=== PATIENT | female | born 1990 | race Caucasian/White ===

== ENCOUNTER 2017-04-23 01:17 | Emergency (ER) | payer BC, OTHER ==
--- NOTE | 2017-04-23 01:27 | EDM.PDOC ---
ED HPI GENERAL MEDICAL PROBLEM - General Chief Complaint: Abdominal Pain Stated Complaint: STOMACH/BACK PAIN Time Seen by Provider: 04/23/17 01:22 - History of Present Illness INITIAL COMMENTS - FREE TEXT/NARRATIVE: HISTORY AND PHYSICAL: History of present illness: Patient's 26-year-old white female presents with a concern of mid back pain radiating around to her abdomen she's had similar episodes in the past is slightly worse tonight she states it hurts somewhat taking a deep breath she denies vomiting diarrhea vaginal discharge or irregular bleeding or other concerns she denies trauma states this is somewhat worse with movement Review of systems: As per history of present illness and below otherwise all systems reviewed and negative. Past medical history: As per history of present illness and as reviewed below otherwise noncontributory. Surgical history: As per history of present illness and as reviewed below otherwise noncontributory. Social history: No reported history of drug or alcohol abuse. Family history: As per history of present illness and as reviewed below otherwise noncontributory. Physical exam: HEENT: Atraumatic, normocephalic, pupils reactive, negative for conjunctival pallor or scleral icterus, mucous membranes moist, throat clear, neck supple, nontender, trachea midline. Lungs: Clear to auscultation, breath sounds equal bilaterally, chest nontender. Heart: S1S2, regular, negative for clicks, rubs, or JVD. Abdomen: Soft, nondistended, nontender. Negative for masses or hepatosplenomegaly. Negative for costovertebral tenderness. Pelvis: Stable nontender. Genitourinary: Deferred. Rectal: Deferred. Extremities: Atraumatic, negative for cords or calf pain. Neurovascular unremarkable. Neuro: Awake, alert, oriented. Cranial nerves II through XII unremarkable. Cerebellum unremarkable. Motor and sensory unremarkable throughout. Exam nonfocal. Diagnostics: CBC CMP amylase lipase UA hCG chest x-ray Therapeutics: Toradol 60 mg IM Impression: #1 back pain #2 abdominal pain Definitive disposition and diagnosis as appropriate pending reevaluation and review of above. - Related Data Allergies Allergy/AdvReac Type Severity Reaction Status Date / Time No Known Allergies Allergy Verified 09/22/15 02:21 Home Meds: Home Meds PNV95/Ferrous Fumarate/FA [ Vitamins Tablet] 1 tab PO DAILY 09/22/15 [ History] Past Medical History Respiratory History: Reports: TB LEGAL SPECIALIST History: Reports: - Infectious Disease History Infectious Disease History: Reports: TB - Past Surgical History HEENT Surgical History: Reports: Tonsillectomy Female Surgical History: Reports: LEEP Social & Family History - Family History HEENT: Reports: Hearing Impairment, Impaired Vision Cardiac: Reports: [place] OBGYN: Reports: Endocrine/Metabolic: Reports: Diabetes, type II ED ROS GENERAL - Review of Systems Review Of Systems: ROS reveals no pertinent complaints other than HPI. ED EXAM, GENERAL - Physical Exam Exam: See Below (See dictation) Course - Orders/Labs/Meds Orders: Active Orders 24 hr Category Date Time Status Chest 2V [CR] Stat Exams 04/23/17 01:24 Ordered AMYLASE [CHEM] Stat Lab 04/23/17 01:21 Ordered CBC WITH AUTO DIFF [HEME] Stat Lab 04/23/17 01:21 Ordered COMPREHENSIVE METABOLIC PN,CMP [CHEM] Stat Lab 04/23/17 01:21 Ordered HCG QUALITATIVE,SERUM [CHEM] Stat Lab 04/23/17 01:21 Ordered LIPASE [CHEM] Stat Lab 04/23/17 01:21 Ordered UA W/MICROSCOPIC [URIN] Stat Lab 04/23/17 01:21 Uncollected Departure - Departure Time of Disposition: : Disposition: Home, Self-Care 01 Condition: Good Clinical Impression: Abdominal pain, Back pain - Discharge Information Referrals: PCP,None [Primary Care Provider] - Additional Instructions: The following information is given to patients seen in the emergency department who are being discharged to home. This information is to outline your options for follow-up care. We provide all patients seen in our emergency department with a follow-up referral. The need for follow-up, as well as the timing and circumstances, are variable depending upon the specifics of your emergency department visit. If you don't have a primary care physician on staff, we will provide you with a referral. We always advise you to contact your personal physician following an emergency department visit to inform them of the circumstance of the visit and for follow-up with them and/or the need for any referrals to a consulting specialist. The emergency department will also refer you to a specialist when appropriate. This referral assures that you have the opportunity for followup care with a specialist. All of these measure are taken in an effort to provide you with optimal care, which includes your followup. Under all circumstances we always encourage you to contact your private physician who remains a resource for coordinating your care. When calling for followup care, please make the office aware that this follow-up is from your recent emergency room visit. If for any reason you are refused follow-up, please contact the [facility] emergency department at and asked to speak to the emergency department charge nurse. [facility] [address] [place] [id number] Primary medical doctor 1-2 days return as needed as discussed] - My Orders Last 24 Hours: My Active Orders 04/23/17 01:21 AMYLASE [CHEM] Stat CBC WITH AUTO DIFF [HEME] Stat COMPREHENSIVE METABOLIC PN,CMP [CHEM] Stat HCG QUALITATIVE,SERUM [CHEM] Stat LIPASE [CHEM] Stat UA W/MICROSCOPIC [URIN] Stat 04/23/17 01:24 Chest 2V [CR] Stat - Assessment/Plan Last 24 Hours: My Active Orders 04/23/17 01:21 AMYLASE [CHEM] Stat CBC WITH AUTO DIFF [HEME] Stat COMPREHENSIVE METABOLIC PN,CMP [CHEM] Stat HCG QUALITATIVE,SERUM [CHEM] Stat LIPASE [CHEM] Stat UA W/MICROSCOPIC [URIN] Stat 04/23/17 01:24 Chest 2V [CR] Stat
[2017-04-23] MEDS ORDERED: Ketorolac 60 MG/2 ML SDV IM ONE (01:29)
[2017-04-23 01:57] LABS: CHLORIDE,CL 106 mmol/L (98-110); SODIUM,NA 139 mmol/L (136-146)
[2017-04-23 03:14] VITALS: BP 113/62
--- NOTE | 2017-04-23 20:25 | CR ---
EXAM DATE: 04/23/17 PATIENT'S AGE: 26 Patient: FLAVIO GONZALEZ Facility: [place], [place] Site . Site : 1990 Study: XRay Chest [id number]/22/2017 2:57:16 AM Ordering Physician: Elke Denise Final Report: INDICATION: UPPER BACK PAIN, SOB TECHNIQUE: Chest 2 views. COMPARISON: 07/08/10 FINDINGS: Cardiovascular and mediastinum: Heart size and vasculature are normal in caliber and appearance. Mediastinum is within normal limits. Lungs and pleural spaces: Lungs are clear. No sign of infiltrate or mass. No sign of pleural effusion. No pneumothorax. Bones and soft tissues: No significant findings. IMPRESSION: Unremarkable chest. Dictated by: Torey Feliz MD @ 04/23/2017 03:03:41 (Electronic Signature) Report Signed by Proxy. [facility]AMPUSPaul
== END 2017-04-23 03:12 | disposition home or self-care (01) ==
LOC: MW.ED 01:17
DX: M54.6 Pain in thoracic spine (principal); R10.9 Unspecified abdominal pain
CPT/HCPCS: 36415; 71020; 80053; 81001; 82150; 83690; 84703; 85025; 96372; 99284; J1885; 99281

== ENCOUNTER 2017-11-04 14:57 | Emergency (ER) | payer BC, OTHER ==
[2017-11-04 15:11] VITALS: BP 119/86
[2017-11-04] MEDS ORDERED: Diphtheria,Pertussis(Acell),Tetanus Vaccine 0.5 ML Syringe IM ONE (15:13)
[2017-11-04] MEDS ORDERED: Ondansetron 4 MG Tab.DIS PO ONE (15:13)
--- NOTE | 2017-11-04 15:16 | EDM.PDOC ---
ED HPI GENERAL MEDICAL PROBLEM - General Chief Complaint: Neuro Symptoms/Deficits Stated Complaint: BLACKING OUT Time Seen by Provider: 11/04/17 15:10 - History of Present Illness INITIAL COMMENTS - FREE TEXT/NARRATIVE: HISTORY AND PHYSICAL: History of present illness: Patient's 27 year female presents after having fallen while drinking yesterday she sustained an abrasion contusion her left face she's had some nausea since she denies neck pain chest or abdominal pain or trauma or other concern Review of systems: As per history of present illness and below otherwise all systems reviewed and negative. Past medical history: As per history of present illness and as reviewed below otherwise noncontributory. Surgical history: As per history of present illness and as reviewed below otherwise noncontributory. Social history: No reported history of drug or alcohol abuse. Family history: As per history of present illness and as reviewed below otherwise noncontributory. Physical exam: HEENT: Abrasion noted to the left face some small swelling no bony step-off depression crepitation, normocephalic, pupils reactive, negative for conjunctival pallor or scleral icterus, mucous membranes moist, throat clear, neck supple, nontender, trachea midline. Lungs: Clear to auscultation, breath sounds equal bilaterally, chest nontender. Heart: S1S2, regular, negative for clicks, rubs, or JVD. Abdomen: Soft, nondistended, nontender. Negative for masses or hepatosplenomegaly. Negative for costovertebral tenderness. Pelvis: Stable nontender. Genitourinary: Deferred. Rectal: Deferred. Extremities: Atraumatic, negative for cords or calf pain. Neurovascular unremarkable. Neuro: Awake, alert, oriented. Cranial nerves II through XII unremarkable. Cerebellum unremarkable. Motor and sensory unremarkable throughout. Exam nonfocal. Diagnostics: CT brain Therapeutics: Zofran 4 mg by mouth tetanus update Impression: #1 observation status post fall #2 head injury with abrasion/contusion #3 concussion Definitive disposition and diagnosis as appropriate pending reevaluation and review of above. abdominal pain Pain Score (Numeric/FACES): 6 - Related Data Allergies Allergy/AdvReac Type Severity Reaction Status Date / Time No Known Allergies Allergy Verified 11/04/17 15:05 Home Meds: Home Meds . 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: Psychiatric History: Reports: None - Infectious Disease History Infectious Disease History: Reports: TB - Past Surgical History HEENT Surgical History: Reports: Tonsillectomy Respiratory Surgical History: Reports: None Female Surgical History: Reports: LEEP Social & Family History - Family History Family Medical History: Noncontributory HEENT: Reports: Hearing Impairment, Impaired Vision Cardiac: Reports: [place] OBGYN: Reports: Endocrine/Metabolic: Reports: Diabetes, type II - Tobacco Use Smoking Status *Q: Never Smoker Second Hand Smoke Exposure: No - Caffeine Use Caffeine Use: Reports: None - Recreational Drug Use Recreational Drug Use: No ED ROS GENERAL - Review of Systems Review Of Systems: ROS reveals no pertinent complaints other than HPI. ED EXAM, GENERAL - Physical Exam Exam: See Below (See dictation) Course - Vital Signs Last Recorded V/S: Last Vital Signs Temp 36.8 C 11/04/17 15:06 Pulse 90 11/04/17 15:06 Resp 16 11/04/17 15:06 BP 119/86 11/04/17 15:06 Pulse Ox 97 11/04/17 15:06 Departure - Departure Time of Disposition: 15:15 Disposition: Home, Self-Care 01 Condition: Good Clinical Impression: Concussion, Abrasion - Discharge Information Referrals: PCP,None [Primary Care Provider] - Additional Instructions: The following information is given to patients seen in the emergency department who are being discharged to home. This information is to outline your options for follow-up care. We provide all patients seen in our emergency department with a follow-up referral. The need for follow-up, as well as the timing and circumstances, are variable depending upon the specifics of your emergency department visit. If you don't have a primary care physician on staff, we will provide you with a referral. We always advise you to contact your personal physician following an emergency department visit to inform them of the circumstance of the visit and for follow-up with them and/or the need for any referrals to a consulting specialist. The emergency department will also refer you to a specialist when appropriate. This referral assures that you have the opportunity for followup care with a specialist. All of these measure are taken in an effort to provide you with optimal care, which includes your followup. Under all circumstances we always encourage you to contact your private physician who remains a resource for coordinating your care. When calling for followup care, please make the office aware that this follow-up is from your recent emergency room visit. If for any reason you are refused follow-up, please contact the [facility] emergency department at and asked to speak to the emergency department charge nurse. Push fluids clear liquids as directed Motrin/Tylenol as directed follow-up primary medical doctor call to schedule appointment return as needed as discussed
--- NOTE | 2017-11-06 10:57 | CT ---
EXAM DATE: 11/04/17 PATIENT'S AGE: 27 Patient: FLAVIO GONZALEZ Facility: [place], [place] Site . Site : 1990 Study: CT Head [id number] 3:32:25 PM Ordering Physician: Elke Denise Final Report: INDICATION: Head injury. TECHNIQUE: CT head without IV contrast. FINDINGS: Moderate the prominent amounts of fluid in the maxillary sinuses with associated air bubbles and mucosal thickening. Small amounts of fluid and mucosal thickening in the sphenoid, ethmoidal and frontal sinuses. Findings consistent with sinusitis. Probable mild soft tissue swelling left anterior and lateral frontal scalp anteriorly. No intracranial hemorrhage, edema, or mass effect. Remainder negative. IMPRESSION: 1. Mild to moderate changes of acute sinusitis greatest in the maxillary sinuses. 2. No acute intracranial disease. 3. Probable mild soft tissue swelling focally in the left anterior lateral superior frontal scalp. Please note that all CT scans at this facility use dose modulation, iterative reconstruction, and/or weight-based dosing when appropriate to reduce radiation dose to as low as reasonably achievable. Dictated by Dimitrios Hickman MD @ Nov 04 2017 3:54PM (Electronic Signature) Report Signed by Proxy. STEVEN
== END 2017-11-04 16:50 | disposition home or self-care (01) ==
LOC: MW.ED 14:57
DX: S06.0X9A Concussion with loss of consciousness of unspecified duration, initial encounter (principal); S00.83XA Contusion of other part of head, initial encounter; W19.XXXA Unspecified fall, initial encounter; Z23 Encounter for immunization
CPT/HCPCS: 70450; 90471; 90715; 99284; A9270

== ENCOUNTER 2020-01-11 04:28 | Emergency (ER) | payer OTHER ==
--- NOTE | 2020-01-11 04:30 | EDM.PDOC ---
ED HPI GENERAL MEDICAL PROBLEM - General Chief Complaint: Gastrointestinal Problem Stated Complaint: VOMITING Time Seen by Provider: 01/11/20 04:29 - History of Present Illness INITIAL COMMENTS - FREE TEXT/NARRATIVE: History of present illness: 29-year-old female presenting with sore throat for last 2 days and then around 1 AM this morning was woken up by nausea and started vomiting. She also reports some upper abdominal pain and upper back pain that started after vomiting. She has not had any fevers or chills. She did not really want to come to the emergency room but her mother insisted. LMP just ended several days ago. Review of systems: As per history of present illness and below otherwise all systems reviewed and negative. Past medical history: As per history of present illness and as reviewed below otherwise noncontributory. Surgical history: As per history of present illness and as reviewed below otherwise noncontributory. Social history: No reported history of drug or alcohol abuse. Never smoker Family history: As per history of present illness and as reviewed below otherwise noncontributory. Physical exam: GEN: no acute distress, well appearing HEENT: Atraumatic, normocephalic, mucous membranes moist, no pharyngeal erythema or tonsillar enlargement/exudate Neck: supple, nontender, trachea midline. No lymphadenopathy Lungs: No respiratory distress. Heart: RRR Abdomen: Soft, nondistended, nontender, no rebound or guarding. Back: nontender Extremities: Atraumatic. Neurovascularly intact. Neuro: Awake, alert, oriented. Neuro Exam nonfocal. Skin: warm, dry, no lesions Diagnostics: [] Therapeutics: [] MDM: Impression: [] Plan: [] Definitive disposition and diagnosis as appropriate pending reevaluation and review of above. 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: Psychiatric History: Reports: None - Infectious Disease History Infectious Disease History: Reports: TB - Past Surgical History HEENT Surgical History: Reports: Tonsillectomy Respiratory Surgical History: Reports: None Female Surgical History: Reports: LEEP Social & Family History - Family History Family Medical History: Noncontributory HEENT: Reports: Hearing Impairment, Impaired Vision Cardiac: Reports: [place] OBGYN: Reports: Endocrine/Metabolic: Reports: Diabetes, type II - Caffeine Use Caffeine Use: Reports: None ED ROS GENERAL - Review of Systems Review Of Systems: See Below (See HPI) ED EXAM, GI/ABD - Physical Exam Exam: See Below (See HPI) Course - Vital Signs Text/Narrative:: Nauseated, vomiting, recent sore throat, possible viral illness, possible coronavirus. Will check labs, COVID swab, test and UA. Giving IV fluids, Zofran and Toradol Feeling better after medications. Still has some throat burning and therefore GI cocktail was given which did help. Labs unremarkable, UA negative for infection, test negative, COVID swab negative, no focalized infectious signs or symptoms. No abdominal tenderness on examination. Lipase and bilirubin not elevated. Last Recorded V/S: Last Vital Signs Temp 97.1 F 01/11/20 04:28 Pulse 60 01/11/20 05:45 Resp 14 01/11/20 05:45 BP 124/61 01/11/20 05:45 Pulse Ox 95 01/11/20 05:45 - Orders/Labs/Meds Orders: Active Orders 24 hr Category Date Time Status Sodium Chloride 0.9% [Saline Flush] Med 01/11/20 04:44 Active 10 ml FLUSH ASDIRECTED PRN Sodium Chloride 0.9% [Saline Flush] Med 01/11/20 04:44 Active 2.5 ml FLUSH ASDIRECTED PRN Saline Lock Insert [OM.PC] Stat Oth 01/11/20 04:44 Ordered Medication Orders Sodium Chloride (Saline Flush) 10 ml FLUSH ASDIRECTED PRN PRN Reason: Keep Vein Open Sodium Chloride (Saline Flush) 2.5 ml FLUSH ASDIRECTED PRN PRN Reason: Keep Vein Open Labs: Laboratory Tests 01/11/20 01/11/20 01/11/20 Range/Units 04:45 04:45 04:45 WBC 10.58 (4.0-11.0) K/uL RBC 4.62 (4.30-5.90) M/uL Hgb 13.9 (12.0-16.0) g/dL Hct 40.6 (36.0-46.0) % MCV 87.9 (80.0-98.0) fL MCH 30.1 (27.0-32.0) pg MCHC 34.2 (31.0-37.0) g/dL RDW Std Deviation 39.6 (28.0-62.0) fl RDW Coeff of Devon 12 (11.0-15.0) % Plt Count 249 (150-400) K/uL MPV 9.30 (7.40-12.00) fL Neut % (Auto) 73.2 (48.0-80.0) % Lymph % (Auto) 18.7 (16.0-40.0) % Yell % (Auto) 6.7 (0.0-15.0) % Eos % (Auto) 1.3 (0.0-7.0) % Baso % (Auto) 0.1 (0.0-1.5) % Neut # (Auto) 7.7 H (1.4-5.7) K/uL Lymph # (Auto) 2.0 (0.6-2.4) K/uL Yell # (Auto) 0.7 (0.0-0.8) K/uL Eos # (Auto) 0.1 (0.0-0.7) K/uL Baso # (Auto) 0.0 (0.0-0.1) K/uL Nucleated RBC % 0.0 /100WBC Nucleated RBCs # 0 K/uL Sodium 141 (136-145) mmol/L Potassium 3.8 (3.5-5.1) mmol/L Chloride 104 (98-107) mmol/L Carbon Dioxide 28.0 (21.0-32.0) mmol/L BUN 19 H (7.0-18.0) mg/dL Creatinine 0.8 (0.6-1.0) mg/dL Est Cr Clr Drug Dosing TNP Estimated GFR (MDRD) > 60.0 ml/min Glucose 117 H (74-106) mg/dL Calcium 8.6 (8.5-10.1) mg/dL Total Bilirubin 0.3 (0.2-1.0) mg/dL AST 14 L (15-37) IU/L ALT 46 (14-63) IU/L Alkaline Phosphatase 72 (46-116) U/L Total Protein 7.5 (6.4-8.2) g/dL Albumin 3.6 (3.4-5.0) g/dL Globulin 3.9 (2.6-4.0) g/dL Albumin/Globulin Ratio 0.9 (0.9-1.6) Lipase 92 (73-393) U/L HCG, Qual (NEG) Urine Color YELLOW Urine Appearance SLT CLOUDY Urine pH 5.5 (5.0-8.0) Ur Specific [place] >= 1.030 (1.001-1.035) Urine Protein NEGATIVE (NEGATIVE) mg/dL Urine Glucose (UA) NEGATIVE (NEGATIVE) mg/dL Urine Ketones NEGATIVE (NEGATIVE) mg/dL Urine Occult Blood TRACE-INTACT H (NEGATIVE) Urine Nitrite NEGATIVE (NEGATIVE) Urine Bilirubin NEGATIVE (NEGATIVE) Urine Urobilinogen 0.2 (<2.0) EU/dL Ur Leukocyte Esterase NEGATIVE (NEGATIVE) Urine RBC 0-2 (0-2/HPF) Urine WBC 0-1 (0-5/HPF) Ur Epithelial Cells MODERATE (NONE-FEW) Urine Bacteria RARE (NEGATIVE) Urine Mucus LIGHT (NONE-MOD) COVID-19 (MERRICK) (NEGATIVE) 01/11/20 01/11/20 Range/Units 04:45 05:00 WBC (4.0-11.0) K/uL RBC (4.30-5.90) M/uL Hgb (12.0-16.0) g/dL Hct (36.0-46.0) % MCV (80.0-98.0) fL MCH (27.0-32.0) pg MCHC (31.0-37.0) g/dL RDW Std Deviation (28.0-62.0) fl RDW Coeff of [place] (11.0-15.0) % Plt Count (150-400) K/uL MPV (7.40-12.00) fL Neut % (Auto) (48.0-80.0) % Lymph % (Auto) (16.0-40.0) % Yell % (Auto) (0.0-15.0) % Eos % (Auto) (0.0-7.0) % Baso % (Auto) (0.0-1.5) % Neut # (Auto) (1.4-5.7) K/uL Lymph # (Auto) (0.6-2.4) K/uL Yell # (Auto) (0.0-0.8) K/uL Eos # (Auto) (0.0-0.7) K/uL Baso # (Auto) (0.0-0.1) K/uL Nucleated RBC % /100WBC Nucleated RBCs # K/uL Sodium (136-145) mmol/L Potassium (3.5-5.1) mmol/L Chloride (98-107) mmol/L Carbon Dioxide (21.0-32.0) mmol/L BUN (7.0-18.0) mg/dL Creatinine (0.6-1.0) mg/dL Est Cr Clr Drug Dosing Estimated GFR (MDRD) ml/min Glucose (74-106) mg/dL Calcium (8.5-10.1) mg/dL Total Bilirubin (0.2-1.0) mg/dL AST (15-37) IU/L ALT (14-63) IU/L Alkaline Phosphatase (46-116) U/L Total Protein (6.4-8.2) g/dL Albumin (3.4-5.0) g/dL Globulin (2.6-4.0) g/dL Albumin/Globulin Ratio (0.9-1.6) Lipase (73-393) U/L HCG, Qual NEGATIVE (NEG) Urine Color Urine Appearance Urine pH (5.0-8.0) Ur Specific [place] (1.001-1.035) Urine Protein (NEGATIVE) mg/dL Urine Glucose (UA) (NEGATIVE) mg/dL Urine Ketones (NEGATIVE) mg/dL Urine Occult Blood (NEGATIVE) Urine Nitrite (NEGATIVE) Urine Bilirubin (NEGATIVE) Urine Urobilinogen (<2.0) EU/dL Ur Leukocyte Esterase (NEGATIVE) Urine RBC (0-2/HPF) Urine WBC (0-5/HPF) Ur Epithelial Cells (NONE-FEW) Urine Bacteria (NEGATIVE) Urine Mucus (NONE-MOD) COVID-19 (MERRICK) NEGATIVE (NEGATIVE) Meds: Medications Generic Name Dose Route Start Last Admin Trade Name Freq PRN Reason Stop Dose Admin Sodium Chloride 10 ml 01/11/20 04:44 Saline Flush FLUSH ASDIRECTED PRN Keep Vein Open Sodium Chloride 2.5 ml 01/11/20 04:44 Saline Flush FLUSH ASDIRECTED PRN Keep Vein Open Discontinued Medications Generic Name Dose Route Start Last Admin Trade Name Mellissa PRN Reason Stop Dose Admin Al Hydroxide/Mg Hydroxide 15 0 ml 01/11/20 05:39 01/11/20 05:49 ml/ Lidocaine HCl 5 ml PO 01/11/20 05:40 1 each ONETIME ONE Administration Sodium Chloride 1,000 mls @ 999 mls/hr 01/11/20 04:44 01/11/20 04:46 Normal Saline IV 01/11/20 05:44 999 mls/hr .Bolus ONE Administration Ketorolac Tromethamine 15 mg 01/11/20 04:44 01/11/20 04:54 Toradol IVPUSH 01/11/20 04:45 15 mg ONETIME ONE Administration Ondansetron HCl 4 mg 01/11/20 04:44 01/11/20 04:55 Zofran IVPUSH 01/11/20 04:45 4 mg ONETIME ONE Administration - Re-Assessments/Exams Free Text/Narrative Re-Assessment/Exam: 01/11/20 05:40 Reassessed the patient. She is feeling somewhat better. Her back pain and nausea are now improved. Her only complaint currently is that she still feels some throat burning after vomiting. Will give GI cocktail. Discussed all results with the patient. Suspect she may have a viral illness. 01/11/20 06:15 Patient is now feeling much better after the GI cocktail. She is no longer nauseated nor is she feeling the throat burning feeling. She would like to be discharged. Will prescribe Zofran PRN - eprescribe not available for her pharmacy, script printed Departure - Departure Time of Disposition: 06:15 Disposition: Home, Self-Care 01 Clinical Impression: Vomiting - Discharge Information Prescriptions: Ondansetron [Zofran ODT] 4 mg PO Q6H PRN #20 tab.dis PRN Reason: Nausea/Vomiting Instructions: Nausea and Vomiting, Adult, [id number] Referrals: Deyvi Vitale [Primary Care Provider] - 2 Days Forms: ED Department Discharge Additional Instructions: The following information is given to patients seen in the emergency department who are being discharged to home. This information is to outline your options for follow-up care. We provide all patients seen in our emergency department with a follow-up referral. The need for follow-up, as well as the timing and circumstances, are variable depending upon the specifics of your emergency department visit. If you don't have a primary care physician on staff, we will provide you with a referral. We always advise you to contact your personal physician following an emergency department visit to inform them of the circumstance of the visit and for follow-up with them and/or the need for any referrals to a consulting specialist. The emergency department will also refer you to a specialist when appropriate. This referral assures that you have the opportunity for follow-up care with a specialist. All of these measure are taken in an effort to provide you with optimal care, which includes your follow-up. Under all circumstances we always encourage you to contact your private physician who remains a resource for coordinating your care. When calling for follow-up care, please make the office aware that this follow-up is from your recent emergency room visit. If for any reason you are refused follow-up, please contact the [facility] Emergency Department at and asked to speak to the emergency department charge nurse. Sepsis Event Note (ED) - Focused Exam Vital Signs: Vital Signs Temp Pulse Resp BP Pulse Ox 01/11/20 05:45 60 14 124/61 95 01/11/20 04:28 97.1 F 97 14 128/84 97 - My Orders Last 24 Hours: My Active Orders 01/11/20 04:44 Sodium Chloride 0.9% [Saline Flush] 10 ml FLUSH ASDIRECTED PRN Sodium Chloride 0.9% [Saline Flush] 2.5 ml FLUSH ASDIRECTED PRN Saline Lock Insert [OM.PC] Stat - Assessment/Plan Last 24 Hours: My Active Orders 01/11/20 04:44 Sodium Chloride 0.9% [Saline Flush] 10 ml FLUSH ASDIRECTED PRN Sodium Chloride 0.9% [Saline Flush] 2.5 ml FLUSH ASDIRECTED PRN Saline Lock Insert [OM.PC] Stat
[2020-01-11] MEDS ORDERED: Ondansetron 4 MG/2 ML SDV IVPUSH ONE (04:44)
[2020-01-11] MEDS ORDERED: Sodium Chloride 0.9% 2.5 ML Syringe FLUSH PRN (04:44)
[2020-01-11] MEDS ORDERED: Sodium Chloride 0.9% 10 ML Syringe FLUSH PRN (04:44)
[2020-01-11] MEDS ORDERED: Ketorolac 15 MG/ML SDV IVPUSH ONE (04:44)
[2020-01-11] MEDS ORDERED: Sodium Chloride 0.9% 1,000 ML IV ONE (04:44)
[2020-01-11 05:14] LABS: BLOOD UREA NITROGEN,BUN 19 mg/dL (7.0-18.0); CHLORIDE,CL 104 mmol/L (98-107); GLUCOSE RANDOM 117 mg/dL (74-106); LIPASE 92 U/L (73-393); POTASSIUM,K 3.8 mmol/L (3.5-5.1); SODIUM,NA 141 mmol/L (136-145)
[2020-01-11] MEDS ORDERED: Alum Hydrox/Mag Hydrox/Simeth 15 ML, Lidocaine 2% 5 ML PO ONE ×2 (05:39)
[2020-01-11 06:50] VITALS: BP 128/83; PULSE 76
== END 2020-01-11 06:45 | disposition home or self-care (01) ==
LOC: MW.ED 04:28
DX: R11.2 Nausea with vomiting, unspecified (principal); Z20.828 Contact with and (suspected) exposure to other viral communicable diseases
CPT/HCPCS: 36415; 80053; 81001; 83690; 84703; 85025; 87635; 96361; 96374; 96375; 99284; A9270; J1885; J2405; J7030; 99283; U0002

== ENCOUNTER 2020-02-21 12:53 | Emergency (ER) | payer OTHER ==
[2020-02-21] MEDS ORDERED: Octyl 2-Cyanoacrylate 1 APPLIC TUBE TOP ONE (13:12)
[2020-02-21] MEDS ORDERED: Octyl 2-Cyanoacrylate 1 APPLIC TUBE ONE (13:13)
--- NOTE | 2020-02-21 13:15 | EDM.PDOC ---
ED HPI GENERAL MEDICAL PROBLEM - General Chief Complaint: Laceration Stated Complaint: FINGER INJURY Time Seen by Provider: 02/21/20 12:55 - History of Present Illness INITIAL COMMENTS - FREE TEXT/NARRATIVE: History of present illness: Patient presents with a 1/2 cm laceration to the pad of her right thumb after doing some pizza cutting with a pizza cutter that broke she slipped and cut her thumb just prior to arrival tetanus up-to-date no other complaints no other injuries bleeding is controlled was cleaned on arrival by nursing staff she has a well approximated nonbleeding wound to the right thumb pad. Review of systems: As per history of present illness and below otherwise all systems reviewed and negative. Past medical history: As per history of present illness and as reviewed below otherwise noncontributory. Surgical history: As per history of present illness and as reviewed below otherwise noncontributory. Social history: No reported history of drug or alcohol abuse. Family history: As per history of present illness and as reviewed below otherwise noncontributory. Physical exam: HEENT: Atraumatic, normocephalic, pupils reactive, negative for conjunctival pallor or scleral icterus, mucous membranes moist, throat clear, neck supple, nontender, trachea midline. Lungs: Clear to auscultation, breath sounds equal bilaterally, chest nontender. Heart: S1S2, regular, negative for clicks, rubs, or JVD. Abdomen: Soft, nondistended, nontender. Negative for masses or hepatosplenomegaly. Negative for costovertebral tenderness. Pelvis: Stable nontender. Genitourinary: Deferred. Rectal: Deferred. Extremities: Atraumatic, negative for cords or calf pain. Neurovascular unremarkable. 1.5 cm laceration to the right thumb pad no bleeding well approximated superficial Neuro: Awake, alert, oriented. Cranial nerves II through XII unremarkable. Cerebellum unremarkable. Motor and sensory unremarkable throughout. Exam nonfocal. Diagnostics: [] Therapeutics: [] Impression: [] Plan: Dermabond [] Definitive disposition and diagnosis as appropriate pending reevaluation and review of above. R thumb Pain Score (Numeric/FACES): 3 - Related Data Allergies Allergy/AdvReac Type Severity Reaction Status Date / Time No Known Allergies Allergy Verified 02/21/20 13:04 Home Meds: Home Meds . 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: Psychiatric History: Reports: None Hematologic History: Reports: None Immunologic History: Reports: None Oncologic (Cancer) History: Reports: None - Infectious Disease History Infectious Disease History: Reports: Chicken Pox - Past Surgical History Head Surgeries/Procedures: Reports: None HEENT Surgical History: Reports: Tonsillectomy Respiratory Surgical History: Reports: None Female Surgical History: Reports: Section, LEEP Social & Family History - Family History Family Medical History: Noncontributory HEENT: Reports: Hearing Impairment, Impaired Vision Cardiac: Reports: [place] OBGYN: Reports: Endocrine/Metabolic: Reports: Diabetes, type II - Tobacco Use Smoking Status *Q: Never Smoker Second Hand Smoke Exposure: No - Caffeine Use Caffeine Use: Reports: Coffee - Recreational Drug Use Recreational Drug Use: No ED ROS GENERAL - Review of Systems Review Of Systems: See Below ED EXAM, SKIN/RASH Exam: See Below Course - Vital Signs Text/Narrative:: The wound was cleaned by nursing staff prior to arrival no analgesia. It was then closed with Dermabond good results. Last Recorded V/S: Last Vital Signs Temp 36.4 C 02/21/20 12:59 Pulse 74 02/21/20 12:59 Resp 17 02/21/20 12:59 BP 131/74 02/21/20 12:59 Pulse Ox 96 02/21/20 12:59 - Orders/Labs/Meds Orders: Active Orders 24 hr Category Date Time Status Octyl 2-Cyanoacrylate [Dermabond Mini] Med 02/21/20 13:12 Once 1 applic TOP ONETIME ONE Medication Orders Octyl Cyanoacrylate (Dermabond Mini) 1 applic TOP ONETIME ONE Stop: 02/21/20 13:13 Meds: Medications Generic Name Dose Route Start Last Admin Trade Name Freq PRN Reason Stop Dose Admin Octyl Cyanoacrylate 1 applic 02/21/20 13:12 Dermabond Mini TOP 02/21/20 13:13 ONETIME ONE Departure - Departure Time of Disposition: 13:14 Disposition: Home, Self-Care 01 Condition: Good Clinical Impression: Laceration - Discharge Information *PRESCRIPTION DRUG MONITORING PROGRAM REVIEWED*: Not Applicable *COPY OF PRESCRIPTION DRUG MONITORING REPORT IN PATIENT MARIBEL: Not Applicable Instructions: Laceration Care, Adult, [id number] Referrals: Cyndy Sweet MD [Primary Care Provider] - Additional Instructions: The following information is given to patients seen in the emergency department who are being discharged to home. This information is to outline your options for follow-up care. We provide all patients seen in our emergency department with a follow-up referral. The need for follow-up, as well as the timing and circumstances, are variable depending upon the specifics of your emergency department visit. If you don't have a primary care physician on staff, we will provide you with a referral. We always advise you to contact your personal physician following an emergency department visit to inform them of the circumstance of the visit and for follow-up with them and/or the need for any referrals to a consulting specialist. The emergency department will also refer you to a specialist when appropriate. This referral assures that you have the opportunity for follow-up care with a specialist. All of these measure are taken in an effort to provide you with optimal care, which includes your follow-up. Under all circumstances we always encourage you to contact your private physician who remains a resource for coordinating your care. When calling for follow-up care, please make the office aware that this follow-up is from your recent emergency room visit. If for any reason you are refused follow-up, please contact the [facility] Emergency Department at and asked to speak to the emergency department charge nurse. [facility] [address] [place] [id number] [address] Sepsis Event Note (ED) - Evaluation Sepsis Screening Result: No Definite Risk - Focused Exam Vital Signs: Vital Signs Temp Pulse Resp BP Pulse Ox 02/21/20 12:59 36.4 C 74 17 131/74 96 - My Orders Last 24 Hours: My Active Orders 02/21/20 13:12 Octyl 2-Cyanoacrylate [Dermabond Mini] 1 applic TOP ONETIME ONE - Assessment/Plan Last 24 Hours: My Active Orders 02/21/20 13:12 Octyl 2-Cyanoacrylate [Dermabond Mini] 1 applic TOP ONETIME ONE
[2020-02-21 13:27] VITALS: BP 109/72; PULSE 77
== END 2020-02-21 13:23 | disposition home or self-care (01) ==
LOC: MW.ED 12:53
DX: S61.011A Laceration without foreign body of right thumb without damage to nail, initial encounter (principal); Z90.89 Acquired absence of other organs; W27.4XXA Contact with kitchen utensil, initial encounter
CPT/HCPCS: 12001; 99282; A9270

== ENCOUNTER 2023-03-20 01:09 | Emergency (ER) | payer OTHER ==
[2023-03-20] MEDS ORDERED: Sodium Chloride 0.9% 10 ML Syringe FLUSH PRN (01:39)
[2023-03-20] MEDS ORDERED: Sodium Chloride 0.9% 2.5 ML Syringe FLUSH PRN (01:39)
[2023-03-20] MEDS ORDERED: HYDROmorphone 1 MG/ML Syringe IVPUSH ONE (01:40)
[2023-03-20] MEDS ORDERED: Ondansetron 4 MG/2 ML SDV IVPUSH ONE (01:40)
[2023-03-20 01:46] LABS: BASOPHILS PERCENT AUTO 0.2 % (0.0-1.5); EOSINOPHILS ABSOLUTE AUTO 0.2 K/uL (0.0-0.7); EOSINOPHILS PERCENT AUTO 1.5 % (0.0-7.0); HEMATOCRIT 39.2 % (36.0-46.0); HEMOGLOBIN 13.2 g/dL (12.0-16.0); LYMPHOCYTES ABSOLUTE AUTO 2.9 K/uL (0.6-2.4); LYMPHOCYTES PERCENT AUTO 22.1 % (16.0-40.0); MEAN CORPUSCULAR HEMOGLOBIN 29.7 pg (27.0-32.0); MEAN CORPUSCULAR HGB CONC 33.7 g/dL (31.0-37.0); MEAN CORPUSCULAR VOLUME 88.3 fL (80.0-98.0); MONOCYTES ABSOLUTE AUTO 0.7 K/uL (0.0-0.8); MONOCYTES PERCENT AUTO 5.2 % (0.0-15.0); NEUTROPHILS ABSOLUTE AUTO 9.2 K/uL (1.4-5.7); NRBC ABSOLUTE 0 K/uL; PLATELET COUNT,PLT 286 K/uL (150-400); RED BLOOD CELL COUNT 4.44 M/uL (4.30-5.90); WHITE BLOOD CELL COUNT,WBC 13.01 K/uL (4.0-11.0)
[2023-03-20 02:00] LABS: A/G RATIO 0.9 (0.9-1.6); ALBUMIN 3.3 g/dL (3.4-5.0); BILIRUBIN TOTAL 0.3 mg/dL (0.2-1.0); CALCIUM 8.4 mg/dL (8.5-10.1); CARBON DIOXIDE,CO2 29.4 mmol/L (21.0-32.0); CREATININE 0.9 mg/dL (0.6-1.0); EST CRCL DRUG DOSING (CG) 88.07 mL/min; POTASSIUM,K 3.4 mmol/L (3.5-5.1); PROTEIN TOTAL,TP 7.1 g/dL (6.4-8.2)
[2023-03-20 02:04] LABS: LACTIC ACID 1.3 mmol/L (0.4-2.0)
[2023-03-20] MEDS ORDERED: Iopamidol 755 MG/ML 500 ML Multipack Bottle IVPUSH ONE (02:10)
[2023-03-20 02:16] LABS: APPEARANCE,URINE SLT CLOUDY; BILIRUBIN,URINE NEGATIVE (NEGATIVE); COLOR,URINE YELLOW; GLUCOSE,URINE NEGATIVE (NEGATIVE); KETONES,URINE NEGATIVE (NEGATIVE); LEUKOCYTE ESTERASE,URINE NEGATIVE (NEGATIVE); NITRITE,URINE NEGATIVE (NEGATIVE); OCCULT BLOOD,URINE NEGATIVE (NEGATIVE); PROTEIN,URINE NEGATIVE (NEGATIVE); UROBILINOGEN,URINE 0.2 EU/dL (<2.0)
[2023-03-20] MEDS ORDERED: Amoxicillin/Clavulanate K 875-125 MG Tab PO ONE (04:08)
[2023-03-20 04:13] VITALS: BP 135/81; PULSE 71
== END 2023-03-20 04:19 | disposition home or self-care (01) ==
LOC: MW.ED 01:09
DX: K80.20 Calculus of gallbladder without cholecystitis without obstruction (principal); Z79.899 Other long term (current) drug therapy
CPT/HCPCS: 36415; 74177; 76705; 80053; 81003; 81025; 83605; 83690; 85025; 96374; 96375; 99284; A9270; J1170; J2405; J3490; Q9967

== ENCOUNTER 2023-07-19 01:12 | Emergency (ER) | payer BC, OTHER ==
[2023-07-19] MEDS ORDERED: Ketorolac 30 MG/ML SDV IVPUSH ONE (01:33)
[2023-07-19 01:43] LABS: BASOPHILS ABSOLUTE AUTO 0.03 K/uL (0.00-0.20); BASOPHILS PERCENT AUTO 0.3 % (0.0-1.0); EOSINOPHILS ABSOLUTE AUTO 0.18 K/uL (0.00-0.45); EOSINOPHILS PERCENT AUTO 1.8 % (0.0-6.0); HEMATOCRIT 36.8 % (37.0-47.0); HEMOGLOBIN 12.7 g/dL (12.0-16.0); IMMATURE GRAN ABSOLUTE AUTO 0.01 K/uL (0.00-0.05); IMMATURE GRAN PERCENT AUTO 0.1 % (0.0-0.4); LYMPHOCYTES ABSOLUTE AUTO 3.33 K/uL (1.00-4.80); LYMPHOCYTES PERCENT AUTO 33.1 % (24.0-44.0); MEAN CORPUSCULAR HEMOGLOBIN 29.7 pg (28.0-32.0); MEAN CORPUSCULAR HGB CONC 34.5 g/dL (32.0-36.0); MEAN PLATELET VOLUME 9.2 fL (9.4-12.3); MONOCYTES ABSOLUTE AUTO 0.78 K/uL (0.00-0.80); MONOCYTES PERCENT AUTO 7.8 % (0.0-8.0); NEUTROPHILS ABSOLUTE AUTO 5.72 K/uL (1.80-7.70); NEUTROPHILS PERCENT AUTO 56.9 % (41.0-71.0); PLATELET COUNT,PLT 299 K/uL (150-400); RED BLOOD CELL COUNT 4.28 M/uL (4.10-5.30); WHITE BLOOD CELL COUNT,WBC 10.05 K/uL (3.9-11.3)
[2023-07-19 02:35] LABS: A/G RATIO 0.8 (0.9-1.6); ALBUMIN 3.2 g/dL (3.4-5.0); BILIRUBIN TOTAL 0.2 mg/dL (0.2-1.0); CALCIUM 8.9 mg/dL (8.5-10.1); CARBON DIOXIDE,CO2 27.8 mmol/L (21.0-32.0); EST CRCL DRUG DOSING (CG) 79.27 mL/min; PROTEIN TOTAL,TP 7.2 g/dL (6.4-8.2)
[2023-07-19 02:58] VITALS: BP 126/73; PULSE 67
== END 2023-07-19 02:58 | disposition home or self-care (01) ==
LOC: MW.ED 01:12
DX: R10.10 Upper abdominal pain, unspecified (principal); M54.9 Dorsalgia, unspecified
CPT/HCPCS: 36415; 80053; 83690; 85025; 96374; 99284; J1885

== ENCOUNTER 2023-08-04 06:37 | Day surgery (SDC) | payer BC, OTHER ==
[~2023-08-04 06:37] MED LIST: Albuterol 0.083% 2.5 MG/3 ML Neb Soln NEB PRN; HYDROmorphone 1 MG/ML Syringe IVPUSH PRN; Metoclopramide 10 MG/2 ML SDV IVPUSH PRN; Morphine 2 MG/ML SYRINGE IVPUSH PRN; Naloxone 0.4 MG/ML SDV IVPUSH PRN; Ondansetron 4 MG/2 ML SDV IVPUSH PRN; droPERidol 5 MG/2 ML SDV IVPUSH PRN; fentaNYL 50 MCG/ML SDV IVPUSH PRN
[2023-08-04] MEDS: Scopalamine 1mg/3day Transdermal Patch TOP ONE (07:00)
[2023-08-04] MEDS: Lactated Ringers 1,000 ML IV SCH (07:11)
[2023-08-04] MEDS ORDERED: propofoL 50 ML ONE ×4 (07:37→09:29)
[2023-08-04] MEDS ORDERED: Bupivacaine 0.5%/EPINEPHrine 1:200,000 30 ML SDV ONE (07:37)
[2023-08-04] MEDS ORDERED: Propofol 200 MG/20 ML SDV ONE (07:38)
[2023-08-04] MEDS ORDERED: Rocuronium Bromide 50 MG/5 ML Syringe ONE ×3 (07:39→12:18)
[2023-08-04] MEDS ORDERED: Morphine 10 MG/ML SDV ONE (07:41)
[2023-08-04] MEDS ORDERED: Bupivacaine 0.5% 30 ML SDV ONE (07:51)
[2023-08-04] MEDS ORDERED: fentaNYL 250 MCG/5 ML SDV ONE (08:12)
[2023-08-04] MEDS ORDERED: fentaNYL 100 MCG/2 ML SDV ONE ×4 (08:30→10:58)
[2023-08-04] MEDS ORDERED: Ketamine 500 mg/10 ML MDV ONE (09:55)
[2023-08-04] MEDS ORDERED: propofoL 200 ML ONE (10:00)
[2023-08-04] MEDS ORDERED: Iopamidol 200-M 10 ML vial ITHECAL ONE ×2 (10:07→10:09)
[2023-08-04] MEDS ORDERED: cefOXitin 1 GM Vial ONE (11:53)
[2023-08-04] MEDS ORDERED: ceFAZolin 1 GM Vial ONE (12:04)
[2023-08-04] MEDS ORDERED: Sugammadex Sodium 200 MG/2 ML VIAL IV ONE (12:18)
[2023-08-04] MEDS ORDERED: Ondansetron 4 MG/2 ML SDV ONE ×2 (12:18)
[2023-08-04] MEDS ORDERED: Ketorolac 30 MG/ML SDV ONE (12:18)
[2023-08-04] MEDS ORDERED: Dexamethasone 4 MG/ML 5 ML MDV ONE (12:18)
[2023-08-04] MEDS ORDERED: Acetaminophen/HYDROcodone 325-5 MG Tab PO PRN (12:41)
[2023-08-04] MEDS ORDERED: Morphine 4 MG/ML Syringe IVPUSH PRN (12:41)
[2023-08-04] MEDS ORDERED: Lactated Ringers 1,000 ML IV SCH (12:45)
[2023-08-04 13:57] VITALS: BP 130/61; PULSE 85
== END 2023-08-04 13:45 | disposition home or self-care (01) ==
LOC: MW.SDS 06:37
PROVIDERS: ATTEND Surgery
DX: K80.10 Calculus of gallbladder with chronic cholecystitis without obstruction (principal); E66.9 Obesity, unspecified; Z68.41 Body mass index [BMI] 40.0-44.9, adult
CPT/HCPCS: 47563; 64486; 64488; 81025; A9270; J0131; J0665; J0690; J0694; J1100; J1885; J2270; J2405; J2704; J3010; J3490; J7120; Q9966; 00790